=== PATIENT | female | born 1960 | race Caucasian/White ===

== ENCOUNTER 2022-12-02 05:57 | Observation (INO) ==
--- NOTE | 2022-11-09 09:04 | PAT Medication Instructions ---
Medication Instructions Date of Service November 09, 2022 Home Medications acetaminophen 325 mg tablet (Tylenol) 325 mg PO QID PRN Pain amlodipine 5 mg tablet 5 mg PO QAM famotidine 20 mg tablet 20 mg PO QAM gabapentin 300 mg tablet 300 mg PO TID multivitamin 1 tab PO QAM naproxen 250 mg tablet 250 mg PO BID PRN Pain tizanidine 4 mg tablet 4 mg PO BID PRN muscle spasms ASK your surgeon for instructions naproxen 250 mg tablet 250 mg PO BID PRN Pain DO NOT take the morning of surgery multivitamin 1 tab PO QAM tizanidine 4 mg tablet 4 mg PO BID PRN muscle spasms Take morning of surgery With a small sip of water, OTHERWISE NOTHING TO EAT OR DRINK AFTER MIDNIGHT: acetaminophen 325 mg tablet (Tylenol) 325 mg PO QID PRN Pain (if needed) amlodipine 5 mg tablet 5 mg PO QAM famotidine 20 mg tablet 20 mg PO QAM gabapentin 300 mg tablet 300 mg PO TID Take evening before surgery acetaminophen 325 mg tablet (Tylenol) 325 mg PO QID PRN Pain (if needed) gabapentin 300 mg tablet 300 mg PO TID tizanidine 4 mg tablet 4 mg PO BID PRN muscle spasms (if needed) Other Notes If you have any questions please call us at [phone] or [phone] or or [phone]
--- NOTE | 2022-11-14 11:56 | Anesthesiology Consultation ---
Date of Service November 14, 2022 Assessment & Plan (1) Encounter for pre-operative examination: COVID screening: Per assessment on 11/14: No known COVID-19 positive contacts or current COVID-19 related symptoms. Travel screen negative. At surgeon discretion if preop Covid testing being done. Chart Review Chart Review: Acceptable Risk for Surgery and Patient seen in Pre Admission Testing Teaching & Discussion Pre-Anesthesia Teaching/Discussion Notes: Instructed NPO after midnight before surgery,except medications with 15 cc of water. Medication instructions provided according to the PAT guidelines. History Surgery Operation Date: 11/28/22 12:55 Proposed Procedures p C4-C6 Anterior Cervical Discectomy and Fusion, Spinal Cord Monitoring - Lonnie Huynh DO Height/Weight Height: 5 ft 2 in Weight: 69.9 kg Allergies Allergy/AdvReac Type Severity Reaction Status Date / Time Penicillins Allergy Intermediate Hives Verified 11/08/22 11:40 Sulfa (Sulfonamide Allergy Intermediate Hives Verified 11/08/22 11:40 Antibiotics) Medications Home Medications Medication Instructions Recorded Confirmed Last Taken acetaminophen 325 mg tablet 325 mg PO QID PRN Pain 11/08/22 11/08/22 Unknown (Tylenol) amlodipine 5 mg tablet 5 mg PO QAM 11/08/22 11/08/22 Unknown famotidine 20 mg tablet 20 mg PO QAM 11/08/22 11/08/22 Unknown gabapentin 300 mg tablet 300 mg PO TID 11/08/22 11/08/22 Unknown multivitamin 1 tab PO QAM 11/08/22 11/08/22 Unknown naproxen 250 mg tablet 250 mg PO BID PRN Pain 11/08/22 11/08/22 Unknown tizanidine 4 mg tablet 4 mg PO BID PRN muscle spasms 11/08/22 11/08/22 Unknown Past Medical History Medical History Asthma As child, no recent issues History of anxiety Hypertension Exercise / Class Metabolic Activity II 4-5 Yardwork/Stairs/Walk up hill Past Family History Family History Other No family history of adverse response to anesthesia Past Surgical History Surgical History History of partial hysterectomy Hx of arthroscopy of shoulder left Hx of section x2 Hx of cholecystectomy Hx of colonoscopy Past Anesthesia History No Hx of Anesthesia Complications and No Family Hx of Anesthesia Complications History of PONV No Hx of PONV and No Hx of Motion Sickness Social History Smoking Status: Never smoker Do You Dip or Chew Tobacco: No Hx Alcohol Use: Yes alcohol intake frequency: a few times a week Hx Substance Use: Yes substance use type: marijuana (marijuana gummies as needed- advised) Last Used Substance Other:: 11/04/22 Review of Systems Patient denies chest pain, shortness of breath, dyspnea on exertion, fever, chills, cough, wheezing, palpitations. Physical Exam Vital Signs VITALS BP 149/76 P 63 TEMP 97.9 SP02 96%RA RESP 16 PHYSICAL Significantly decreased cervical extension range of motion. Full TMJ range of motion. TMD 3.5 finger breaths Mallampati Score 3 Dentition: upper partial Lungs: clear throughout to auscultation Cardiac: regular rate and rhythm, no murmurs noted Spine: normal Carotid arteries: negative bruit Extremities: no edema Lab Results Anesthesia Preop Results Results Anesthesia Widget: PT 10.8 Seconds (9.0-12.0) 11/14/22 PTT 26.2 Seconds (21.0-31.0) 11/14/22 INR 1.0 (0.9-1.1) 11/14/22 Urine Color Yellow 11/14/22 Urine Appearance Clear (Clear) 11/14/22 Urine pH 6.0 (4.5-7.5) 11/14/22 Urine Specific [place] 1.010 (1.000-1.030) 11/14/22 Urine Protein Negative (Negative) 11/14/22 Urine Glucose (UA) Negative (Negative) 11/14/22 Urine Ketones Negative (Negative) 11/14/22 Urine Blood Negative (Negative) 11/14/22 Urine Nitrite Negative (Negative) 11/14/22 Urine Bilirubin Negative (Negative) 11/14/22 Urine Urobilinogen Negative (Negative) 11/14/22 Urine Leukocyte Esterase Trace (Negative) H 11/14/22 Urine WBC (Auto) 1-5 /hpf (0-5) 11/14/22 Urine RBC (Auto) 0-4 /hpf (0-4) 11/14/22 Urine Hyaline Casts (Auto) 0 /lpf (0-5) 11/14/22 Urine Epithelial Cells (Auto) 5-10 /lpf (0-5) H 11/14/22 Urine Bacteria (Auto) Negative (Negative) 11/14/22 Blood Type AB Positive 11/14/22 Antibody Screen NEGATIVE 11/14/22 Testing Laboratory Results 10/13/22 WBC 6.6 H/H 13.5/42.2 PLATELETS 337 SODIUM 140 POTASSIUM 4.6 CHLORIDE 107 CO2 27 BUN 16 CREATININE 0.78 GLUCOSE 90 TSH 2.827 Electrocardiogram Date: 11/14/22 NSR with sinus arrhythmia at 63bpm. Chest X-Ray Date: 11/14/22 FINDINGS: Cardiomediastinal and hilar silhouettes are within normal limits. No pneumothorax, pleural effusion, airspace consolidation or overt pulmonary edema. Minimal linear scarring versus atelectasis of the lateral left lung base. Bones of the chest appear grossly intact. Cholecystectomy. IMPRESSION: No acute process. COVID-19 Risk Screen Screening Information COVID-19 Screen Date: 11/14/22 Exposure 21 Days Family/Household +COVID Last 21 Days: No Exposure 10 Days Any COVID Exposure Last 10 Days: No Symptoms Last 10 Days Experienced COVID Sx Last 10 Days: No + COVID 0-90 Days COVID + in Last 0-90 Days: No
[2022-12-02] MEDS ORDERED: GABAPENTIN 600 MG DOSE PO SCH (06:00)
[2022-12-02] MEDS ORDERED: ACETAMINOPHEN 500 MG TAB PO SCH (06:00)
[2022-12-02] MEDS ORDERED: LR 15ML/HR IV SCH (06:00)
[2022-12-02] MEDS ORDERED: CLINDAMYCIN/D5W 900 MG/50 ML BAG IV SCH (06:00)
[2022-12-02] MEDS ORDERED: ATROPINE SULFATE 0.1 MG/ML 10ML SYR IV PRN (06:59)
[2022-12-02] MEDS ORDERED: ONDANSETRON INJ 2 MG/ML 2 ML VIAL IV PRN ×2 (06:59→10:50)
[2022-12-02] MEDS ORDERED: ePHEDrine sulfate 50 MG/ML AMP IV PRN (06:59)
[2022-12-02] MEDS ORDERED: DEXAMETHASONE SOD INJ 4 MG/ML VIAL ONE (07:01)
[2022-12-02] MEDS ORDERED: MIDAZOLAM HCL 1 MG/ML 2ML VIAL ONE (07:01)
[2022-12-02] MEDS ORDERED: PROPOFOL IV EMULSION 10 MG/ML 100 ML VIAL IV ONE (07:01)
[2022-12-02] MEDS ORDERED: PROPOFOL IV EMULSION 10 MG/ML 20 ML VIAL IV ONE (07:01)
[2022-12-02] MEDS ORDERED: ONDANSETRON INJ 2 MG/ML 2 ML VIAL ONE (07:01)
[2022-12-02] MEDS ORDERED: ROCURONIUM BROMIDE 10 MG/ML 5 ML VIAL IV ONE (07:01)
[2022-12-02] MEDS ORDERED: LIDOCAINE 2% MPF LOCAL 5 ML VIAL INFIL ONE (07:01)
[2022-12-02] MEDS ORDERED: fentaNYL citrate PF 100 MCG/2 ML VIAL ONE ×2 (07:01→08:23)
[2022-12-02] MEDS ORDERED: SUCCINYLCHOLINE CHLORIDE 20 MG/ML 10 ML VIAL IV ONE (07:01)
[2022-12-02] MEDS ORDERED: ceFAZolin 330 MG/ML 1 GM VIAL ONE (07:21)
--- NOTE | 2022-12-02 07:37 | History & Physical Report ---
Date of Service December 02, 2022 Assessment & Plan (1) Cervical stenosis of spinal canal: Plan: C4-C6 anterior cervical discectomy and fusion History of Present Illness Chief Complaint: Neck and arm pain Primary Care Provider: Eileen Escudero DO This is a 62-year-old female who presents with chronic persistent neck and arm pain after failing course of nonoperative care she is here for surgical intervention. Allergies Allergy/AdvReac Type Severity Reaction Status Date / Time Penicillins Allergy Intermediate Hives Verified 12/02/22 06:16 Sulfa (Sulfonamide Allergy Intermediate Hives Verified 12/02/22 06:16 Antibiotics) shellfish derived Allergy Unknown Verified 12/02/22 06:40 Home Medications Medication Instructions Recorded Confirmed Type acetaminophen 325 mg tablet 325 mg PO QID PRN Pain 11/08/22 12/02/22 History (Tylenol) amlodipine 5 mg tablet 5 mg PO QAM 11/08/22 12/02/22 History famotidine 20 mg tablet 20 mg PO QAM 11/08/22 12/02/22 History gabapentin 300 mg tablet 300 mg PO TID 11/08/22 12/02/22 History multivitamin 1 tab PO QAM 11/08/22 12/02/22 History naproxen 250 mg tablet 250 mg PO BID PRN Pain 11/08/22 12/02/22 History tizanidine 4 mg tablet 4 mg PO BID PRN muscle spasms 11/08/22 12/02/22 History Past Med/Surg History Medical History Asthma As child, no recent issues History of anxiety Hypertension Surgical History History of partial hysterectomy Hx of arthroscopy of shoulder left Hx of section x2 Hx of cholecystectomy Hx of colonoscopy Family History Other No family history of adverse response to anesthesia Social History Smoking Status: Never smoker Second Hand Exposure: No; Do You Dip or Chew Tobacco: No; Tobacco Cessation Education Requested by Patient: No Hx Alcohol Use: Yes Hx Substance Use: Yes Last Used Substance Other:: 11/04/22 Preferred Language: Swedish Communication Ability: Effective Lens Polisher Required: No Beliefs That Will Affect Care: None Current Living Situation: Spouse Other Information That Helps Us Care for You: No Feels Safe at Home: Yes Safety Concerns: Feels Safe At This Time Assistive Devices: Glasses Assistive Devices Comment: upper partial Physical Exam Physical Exam: Patient is alert and oriented Heart regular rhythm Lungs clear Results & Data Results & Data ([facility]) Vital Signs (Past 12 Hours) Vital Signs Temp Pulse Resp BP Pulse Ox O2 Del Method 12/02/22 06:25 36.5 C 73 22 167/90 H 95 Room Air
--- NOTE | 2022-12-02 07:37 | History & Physical Bridge Note ---
Date of Service December 02, 2022 History & Physical Bridge Note I have examined the patient, reviewed the History & Physical and in the interval since the performance of the History & Physical I have noted the following changes of clinical significance: no changes noted
[2022-12-02] MEDS ORDERED: KETAMINE 50 MG/5 ML SYRINGE ONE (08:29)
[2022-12-02] MEDS ORDERED: FLOSEAL HEMOSTATIC MATRIX 10ML TOP ONE (08:45)
--- NOTE | 2022-12-02 09:12 | Operative Report ---
Post Operative Report Pre & Post Diagnosis Operation Date: 12/02/22 07:45 Pre-Op Diagnosis: Cervical spinal stenosis with radiculopathy Post-Op Diagnosis: Same I identified the patient and participated in the time-out.: Yes Procedure Operation Date: 12/02/22 07:45 Actual Procedures #1 anterior cervical discectomy with bilateral foraminotomies C4-C5 and C5-C6. #2 anterior cervical arthrodesis C4-C5 and C5-C6. #3 placement of Spira 7 mm cage filled with I factor at C4-C5 C5-C6. #4 application of K2 M plate and screws from C4-C6. Surgeon Lonnie Huynh, DO Product Support Sales Representative Fabian Florez Estimated Blood Loss 10 Findings Consistent with Post-Op Diagnosis Specimens None Indications This is a 8-year-old female who presents above-mentioned diagnosis after failing extensive course of nonoperative care is here for surgical intervention. Description of Procedure Patient was met with identified informed consent obtained. Patient then taken to the operative suite underwent ablation placed in a supine position on the Carlos table with head Whiting head golf professional. All bony prominences well-padded eyes inspected to ensure no external pressure placed upon the. This point the anterior cervical spine was prepped and draped in normal sterile fashion. The assistance of fluoroscopy identified the C5 vertebral body. A transverse incision was placed along the right anterior aspect of the cervical spine overlying this region. Blunt dissection with the assistance of bipolar e lectrocautery was performed down to expose the anterior cervical spine from C4- C6. Self-retaining tractors placed. Then performed complete discectomy of C4- C5 out to the uncovertebral joints bilaterally. Powell distracting pins were utilized to assist in visualization. Removed all posterior annular fibers longitudinal ligament bilateral foraminotomies performed. Endplates burred to subcortical bleeding bone and a 7 mm Spira cage with I factor tapped in position. Then proceeded to see 5 C6. Again complete discectomy performed out to the uncovertebral's bilaterally. Powell distracting pins again utilized. Removed all posterior and the fibers longitudinal ligament bilateral foraminotomies performed. Endplates burred to subcortical bleeding bone and a 7 mm spiral cage with I factor tapped in position. Distracting apparatus was removed all anterior osteophytes burred to a smooth cortical surface and a K2 M plate and screws applied with the assistance of fluoroscopy. The incision was then copiously irrigated explored to ensure no damage to surrounding structures remaining bleeding. 10 round JOSE drain inserted. The incision was then closed with 2 Vicryl in a fashion of 4 Monocryl for final skin closure. Steri-Strips sterile dressings placed. Patient waken taken to PACU in stable condition. Please note spinal cord monitoring was utilized at the procedure no changes note d. Lastly Fabian Florez was present at the entire surgeon while the patient positioning complex portions of the surgery and final skin closure. I attest to the content of the Intraoperative Record and any orders documented therein. Any exceptions are noted below.
--- NOTE | 2022-12-02 09:32 | Fluoroscopy Report ---
FL cervical 2-3V CLINICAL HISTORY: ACDF C4-6 COMPARISON STUDY: None. FLUOROSCOPY TIME: 7 seconds. EXPOSURE DOSE: 0.63 mGy FLUOROSCOPIC IMAGES: 2 FINDINGS: Fluoroscopy was provided during C4-C6 anterior discectomy and fusion. Hardware is intact. S urgical drain is in place. Endotracheal tube is partially imaged. Operative bed linear radiodensities on the initial image are not present on the second image. IMPRESSION: Fluoroscopy provided during C4-C6 anterior discectomy and fusion. ACT 112: Negative or not required by law. Electronically signed by: Josh Casarez M.D. 12/02/2022 9:31 AM
[2022-12-02] MEDS: fentaNYL citrate PF 100 MCG/2 ML VIAL IV PRN ×4 (09:44→10:05)
[2022-12-02] MEDS: HYDROmorphone INJ 2 MG/ML SYR/VIAL IV PRN ×2 (10:10→10:18)
[2022-12-02] MEDS ORDERED: LORazepam 0.5 MG TAB PO PRN (10:50)
[2022-12-02] MEDS ORDERED: LORazepam 2 MG/1 ML VIAL IV PRN (10:50)
[2022-12-02] MEDS ORDERED: RACEPINEPHRINE 2.25% NEBU SOLN 0.5 ML VIAL INH PRN (10:50)
[2022-12-02] MEDS ORDERED: MAGNESIUM HYDROXIDE SUSP 30 ML UDC PO PRN (10:50)
[2022-12-02] MEDS ORDERED: dexAMETHasone 8 MG in SYRINGE 0 ML IV PRN (10:50)
[2022-12-02] MEDS ORDERED: FAMOTIDINE 20 MG TAB PO PRN (10:50)
[2022-12-02] MEDS ORDERED: diphenhydrAMINE Capsule 25 MG CAP PO PRN (10:50)
[2022-12-02] MEDS ORDERED: traMADol HCL 50 MG TABLET PO PRN (10:50)
[2022-12-02] MEDS ORDERED: ONDANSETRON 4 MG OD TAB PO PRN (10:50)
[2022-12-02] MEDS ORDERED: METOCLOPRAMIDE HCL INJ 5 MG/ML 2 ML VIAL IV PRN (10:50)
[2022-12-02] MEDS ORDERED: ACETAMINOPHEN 500 MG TAB PO PRN (10:50)
[2022-12-02] MEDS ORDERED: ALUMINUM/MAGNESIUM SUSP 30 ML UDC PO PRN (10:50)
[2022-12-02] MEDS ORDERED: hydrOXYzine HCl 25 MG TAB PO PRN (10:50)
[2022-12-02] MEDS ORDERED: DO NOT ADMINISTER FLU VACCINE PRN (10:50)
[2022-12-02] MEDS ORDERED: SOD PHOSPHATE/SOD BIPHOSPHATE ENEMA 132 ML BTL PR PRN (10:50)
[2022-12-02] MEDS ORDERED: DO NOT ADMINISTER PNEUMOCOCCAL VACCINE PRN (10:50)
[2022-12-02] MEDS ORDERED: PROMETHAZINE HCL 12.5 MG in SODIUM CHLORIDE 0.9% 50 ML IV PRN (10:50)
[2022-12-02] MEDS ORDERED: ACETAMINOPHEN 1,000 MG/100 ML VIAL IV PRN (10:50)
[2022-12-02] MEDS ORDERED: oxyCODONE HCL IR 5 MG TAB (IMMEDIATE RELEASE) PO PRN (10:50)
[2022-12-02] MEDS ORDERED: bisacodyL 10 MG SUPP PR PRN (10:50)
[2022-12-02] MEDS ORDERED: NALOXONE HCL 0.4 MG/1 ML VIAL/CARP IV PRN (10:50)
[2022-12-02] MEDS: LACTATED RINGER'S 1,000 ML IV SCH ×2 (12:00→21:57)
--- NOTE | 2022-12-02 13:33 | Anesthesiology Progress Note ---
Date of Service December 02, 2022 Anesthesia Post Procedure Vital Signs Vital Signs: Temp Pulse Pulse Resp BP Pulse Ox Pulse Ox 12/02/22 12:51 36.4 C L 88 18 126/76 95 12/02/22 11:56 36.4 C L 92 H 18 128/74 95 12/02/22 11:19 36.4 C L 102 H 18 134/76 94 12/02/22 11:19 113 H 16 94 12/02/22 11:12 12/02/22 10:50 94 12/02/22 10:50 36.5 C 98 H 12 135/78 94 12/02/22 10:40 100 H 18 138/75 95 12/02/22 10:30 36.2 C L 86 16 133/68 95 12/02/22 10:20 98 H 22 143/78 H 95 12/02/22 10:10 88 12 165/86 H 95 12/02/22 10:00 105 H 24 157/95 H 94 12/02/22 09:50 105 H 20 148/83 H 94 12/02/22 09:40 121 H 22 157/92 H 93 12/02/22 09:30 36.2 C L 117 H 20 167/90 H 92 12/02/22 06:25 36.5 C 73 22 167/90 H 95 O2 Del Method O2 Del Method O2 Flow Rate O2 Flow Rate 12/02/22 12:51 Room Air 12/02/22 11:56 Nasal Cannula 2 12/02/22 11:19 Nasal Cannula 2 12/02/22 11:19 Nasal Cannula 2 12/02/22 11:12 Nasal Cannula 2 12/02/22 10:50 Nasal Cannula 2 12/02/22 10:50 Room Air 2 12/02/22 10:40 Nasal Cannula 3 12/02/22 10:30 Nasal Cannula 3 12/02/22 10:20 Nasal Cannula 3 12/02/22 10:10 Nasal Cannula 3 12/02/22 10:00 Nasal Cannula 2 12/02/22 09:50 Nasal Cannula 2 12/02/22 09:40 Nasal Cannula 2 12/02/22 09:30 Nasal Cannula 2 12/02/22 06:25 Room Air Pain Intensity Left Arm: Pain Intensity: 8 Neck: Pain Intensity: 4 Transfer of Care Handoff Completed per policy Notes Mental Status: alert / awake / arousable and participated in evaluation Patient Amnestic to Procedure: Yes Nausea / Vomiting: adequately controlled Pain: adequately controlled Airway Patency, RR, SpO2: stable & adequate BP & HR: stable & adequate Hydration State: stable & adequate Anesthetic Complications: no major complications apparent and Pt Satisfied with anesthetic care
[2022-12-02] MEDS: HYDROmorphone INJ 0.5 MG/0.5 ML SYR IV PRN ×3 (13:55→23:18)
[2022-12-02] MEDS ORDERED: GABAPENTIN 300 MG CAP PO SCH (14:00)
--- NOTE | 2022-12-02 14:46 | Hospitalist Consultation ---
Date of Consultation December 02, 2022 Assessment & Plan (1) Cervical stenosis of spinal canal: s/p discectomy and fusion - Pain control, PT/OT, DVT ppx, JOSE drain management, etc. per primary service - Now that she is post op, would start weaning Gabapentin, will reduce to 300mg BID (previously on TID) - Recommend use of incentive spirometer q1h wa for atelectasis/pna prevention (2) Anxiety: - Is on no specific medications for this - Supportive care (3) Essential hypertension: - Resume Amlodipine - BP well controlled at present (4) GERD (gastroesophageal reflux disease): - Continue Pepcid Plan Patient is doing well post operatively. Recommendations are as outlined above. Thank you for allowing us to participate in the care of your patient. Will sign off as she is medically stable, but please feel free to reconsult if any acute needs should arise while she remains in house. Above plan of care has been d/w Dr. Peter who has will also see and evaluate this patient and agrees with aforementioned. Further orders will be implemented as warranted. Supervising Physician Co-Signing Physician Notes Patient seen and examined, chart reviewed, case discussed with Malu Kesselr PA-C and I agree with the assessment and plan as above except as otherwise noted Labs and images reviewed History of anxiety, asthma, hypertension and cervical stenosis w/ radiculopathy s/p decompression and hardware placement c4-c6. We are consulted for postoperative management. Surgery was uncomplicated with minimal blood loss of 10 cc by report. Patient is doing well postoperatively, is medically stable, and with improvement in symptoms. No pain at assessment. Rate is regular, BP is normal, lungs are clear. JOSE drain serosanguineous material. DVT prophylaxis, pain control, activity per primary team. BP adequately controlled, continue amlodipine. Continue GERD prophylaxis with Pepcid. While on DVT p rophylaxis would increase to PPI either daily or twice daily for duration of prophylaxis. Otherwise agree with recommendations above History of Present Illness Reason for Consultation: Medical management Requesting Physician: Dr. Huynh Attending Physician: Lonnie Huynh, DO History of Present Illness Renetta Richard is a 62 yo WF with a pmhx of anxiety, asthma, and htn who was admitted to Dr. Huynh's service for elective surgical C4-C6 anterior cervical discectomy and fusion due to chronic persistent neck and arm pain after failing course of nonoperative care. She was taken to the OR today, received general anesthesia. She tolerated the procedure well and had no immediate complications. She is currently resting in bed, has no complaints other than feeling drowsy. She notes her pain is adequately controlled. Denies chest pain or dyspnea. She has voided since surgery. Hospitalists have been consulted for routine post op medical management. Allergies Allergy/AdvReac Type Severity Reaction Status Date / Time Penicillins Allergy Intermediate Hives Verified 12/02/22 06:16 Sulfa (Sulfonamide Allergy Intermediate Hives Verified 12/02/22 06:16 Antibiotics) shellfish derived Allergy Unknown Verified 12/02/22 06:40 Home Medications Medication Instructions Recorded Confirmed Type acetaminophen 325 mg tablet 325 mg PO QID PRN Pain 11/08/22 12/02/22 History (Tylenol) amlodipine 5 mg tablet 5 mg PO QAM 11/08/22 12/02/22 History famotidine 20 mg tablet 20 mg PO QAM 11/08/22 12/02/22 History gabapentin 300 mg tablet 300 mg PO TID 11/08/22 12/02/22 History multivitamin 1 tab PO QAM 11/08/22 12/02/22 History naproxen 250 mg tablet 250 mg PO BID PRN Pain 11/08/22 12/02/22 History tizanidine 4 mg tablet 4 mg PO BID PRN muscle spasms 11/08/22 12/02/22 History oxycodone 5 mg tablet 5 mg PO Q6H PRN pain, severe #30 12/02/22 Rx tabs tramadol 50 mg tablet 50 mg PO Q6H PRN pain, moderate 12/02/22 Rx #30 tabs Patient History Medical History Asthma As child, no recent issues History of anxiety Hypertension Surgical History History of partial hysterectomy Hx of arthroscopy of shoulder left Hx of section x2 Hx of cholecystectomy Hx of colonoscopy Family History Other No family history of adverse response to anesthesia Social History Smoking Status: Never smoker Second Hand Exposure: No; Do You Dip or Chew Tobacco: No; Tobacco Cessation Education Requested by Patient: No Hx Alcohol Use: Yes Hx Substance Use: Yes Last Used Substance Other:: 11/04/22 Preferred Language: Belarusian Communication Ability: Effective Classroom Monitor Required: No Beliefs That Will Affect Care: None Current Living Situation: Spouse Other Information That Helps Us Care for You: No Feels Safe at Home: Yes Safety Concerns: Feels Safe At This Time Assistive Devices: None Assistive Devices Comment: upper partial Physical Exam Physical Exam: GENERAL: 62 yo Well-developed, well-nourished WF. NAD. NECK: C-collar in place, incision site anteriorly covered, no shadowing. JOSE drain visualized with scant output. LUNGS: Clear to auscultation bilaterally. CARDIOVASCULAR: Regular rate and rhythm. EXTREMITIES: No edema. Non-tender. Peripheral pulses +2/4. NEUROLOGIC: A&O x3. No focal neurological deficits. CN II-XII grossly intact. Results & Data Results & Data ([facility]) Vital Signs (Past 12 Hours) Vital Signs Temp Pulse Pulse Resp BP Pulse Ox Pulse Ox 12/02/22 13:52 36.4 C L 84 16 126/75 95 12/02/22 12:51 36.4 C L 88 18 126/76 95 12/02/22 11:56 36.4 C L 92 H 18 128/74 95 12/02/22 11:19 36.4 C L 102 H 18 134/76 94 12/02/22 11:19 113 H 16 94 12/02/22 11:12 12/02/22 10:50 94 12/02/22 10:50 36.5 C 98 H 12 135/78 94 12/02/22 10:40 100 H 18 138/75 95 12/02/22 10:30 36.2 C L 86 16 133/68 95 12/02/22 10:20 98 H 22 143/78 H 95 12/02/22 10:10 88 12 165/86 H 95 12/02/22 10:00 105 H 24 157/95 H 94 12/02/22 09:50 105 H 20 148/83 H 94 12/02/22 09:40 121 H 22 157/92 H 93 12/02/22 09:30 36.2 C L 117 H 20 167/90 H 92 12/02/22 06:25 36.5 C 73 22 167/90 H 95 O2 Del Method O2 Del Method O2 Flow Rate O2 Flow Rate 12/02/22 13:52 Nasal Cannula 2 12/02/22 12:51 Nasal Cannula 2 12/02/22 11:56 Nasal Cannula 2 12/02/22 11:19 Nasal Cannula 2 12/02/22 11:19 Nasal Cannula 2 12/02/22 11:12 Nasal Cannula 2 12/02/22 10:50 Nasal Cannula 2 12/02/22 10:50 Room Air 2 12/02/22 10:40 Nasal Cannula 3 12/02/22 10:30 Nasal Cannula 3 12/02/22 10:20 Nasal Cannula 3 12/02/22 10:10 Nasal Cannula 3 12/02/22 10:00 Nasal Cannula 2 12/02/22 09:50 Nasal Cannula 2 12/02/22 09:40 Nasal Cannula 2 12/02/22 09:30 Nasal Cannula 2 12/02/22 06:25 Room Air Laboratory Results Preop labs reviewed Nov 2022 - UA neg, coags WNL, COVID neg, EKG SR with sinus arrhythmia PG Care Time/CCT Total # of Minutes Spent Total Time Spent with Patient: Total time spent is greater than 50% in coordination of care (as documented) at patient's floor/unit and/or counseling patient: Coding Level of Care Code 82257 IN/OBS CONSULT LVL 4,60M Diagnoses Cervical stenosis of spinal canal M48.02 Anxiety F41.9 Essential hypertension I10 GERD (gastroesophageal reflux disease) K21.9
[2022-12-02] MEDS: CLINDAMYCIN/D5W 600 MG/50 ML BAG IV SCH ×2 (16:01→23:14)
[2022-12-02] MEDS ORDERED: DOCUSATE SODIUM/SENNA 50/8.6MG TAB PO SCH (21:00)
[2022-12-02] MEDS: GABAPENTIN 300 MG CAP PO SCH (21:57)
[2022-12-03] MEDS ORDERED: POLYETHYLENE (MIRALAX) 17 GM PACK PO SCH (06:00)
[2022-12-03] MEDS: HYDROmorphone INJ 0.5 MG/0.5 ML SYR IV PRN (06:04)
--- NOTE | 2022-12-03 08:09 | Discharge Summary ---
Date of Service December 03, 2022 Admission HPI Per Admitting Provider This is a 62-year-old female who presents with chronic persistent neck and arm pain after failing course of nonoperative care she is here for surgical intervention. Principal Diagnosis Cervical radiculopathy Discharge Data Allergies Allergy/AdvReac Type Severity Reaction Status Date / Time Penicillins Allergy Intermediate Hives Verified 12/02/22 06:16 Sulfa (Sulfonamide Allergy Intermediate Hives Verified 12/02/22 06:16 Antibiotics) shellfish derived Allergy Unknown Verified 12/02/22 06:40 Consultations 12/02/22 10:50 Consult Hospitalist Routine Procedures Performed Operation Date: 12/02/22 07:45 Actual Procedures p C4-C6 Anterior Cervical Discectomy and Fusion, Spinal Cord Monitoring(Not Applicable) - Lonnie Huynh DO Ordered Studies 12/02/22 07:45 FL cervical 2-3V Routine Hospital Course (1) Cervical stenosis of spinal canal: Patient underwent anterior cervical discectomy fusion tolerated this well was taken to orthopedic for postoperative pain postop day 1 she Alexis Maher left arm pain. Swallowing well. No hoarseness. Pain well controlled. Excellent strength testing. Safely discharged home. Discharge orders and instructions found in the chart for further review. Total Time Total Time Spent Total Time Spent (In Minutes): 20 minutes Discharge Plan Discharge Items Patient Disposition: Home - Self-Care Reason For Visit: Spinal Stenosis, Cervical Region Discharge Diagnosis: Cervical spinal stenosis with radiculopathy Activity: As commented below Non-emergency contact: Primary Care Provider Call non-emergency contact if: you have any medication questions Follow-up/Referrals: Eileen Escudero DO [Primary Care Provider] - Diet: Regular Addtl Attending Provider Instructions: ACTIVITY RECOMMENDATIONS: SELF CARE INSTRUCTIONS AFTER CERVICAL FUSIONS 1. No smoking. Smoking drastically decreases the chance of a solid fusion. 2. No bending, lifting more than 5 pounds, or twisting (roll like a log when turning in bed). 3. You may shower 3 days after surgery. Thoroughly dry wound. Do not soak in the tub. 4. Cervical collar: Must be worn at all times including sleeping. You may remove the brace only to bath, eat and if you are sitting in a recliner. 5. Please walk as much as you can for exercise. Gradually increase the distance that you walk as your endurance increases. SPECIAL CARE INSTRUCTIONS: VERY IMPORTANT TO READ AND REVIEW A. Do not take any anti-inflammatory medications (i.e. Indocin, Advil, Aspirin, Naprosyn, Aleve, Motrin, etc.) as these may inhibit the chance of a solid fusion. Tylenol is okay to take. B. Your surgical incision has been closed with a cosmetic suture under the skin that will dissolve in about 6 weeks. In 14 days, you can use a pair of nehal an scissors and cut the suture that is left outside of the skin at the ends of your incision. C. Complications are uncommon, but please contact us if you have any signs or symptoms of: 1. wound infection (fever higher than 102.5 degrees F, redness, separation of wound, drainage, or increasing pain from the incision) 2. blood clots in legs (pain, swelling, redness and warmth in legs) 3. urinary tract infection (fever higher than 102.5 degrees, burning upon urination or increased frequency of urination) 4. nerve problems (inability to walk on your toes or heels, numbness, loss of bowel or bladder control) 5. any other symptoms that concern you. D. Please call the office at if you have any concerns or questions about your operation or recovery. MANAGING PAIN AFTER SPINAL SURGERY 1. Narcotic medication is intended for short-term use and will be provided for surgical pain. Surgical pain usually lasts for a period of 4-6 weeks. Narcotic medication includes Percocet, Vicodin, Darvocet, Tylenol #3 or Lortab. 2. Longer-term pain is more appropriately treated with non-narcotic medication such as Tylenol ES. 3. Muscle spasm is not appropriately treated with narcotics. Muscle relaxers such as Soma, Flexeril or Skelaxin can be used along with Tylenol ES. 4. Remember that we all live with some "aches and pains". This is not unusual or uncommon after an injury or as we get older. 5. We will provide appropriate medication within the normal guidelines of their prescribed use. We will also be very cautious and aware of potential abuse and extended duration of patients' medication needs. 6. Please allow 2-3 days to process refills. Prescriptions will not be mailed but must be picked up at the office. FOLLOW UP VISIT: Keep your scheduled follow-up appointment. Any questions, please call the office at . Pending Studies at Discharge: No Stand-Alone Forms: My [facility], Smoking Cessation Medications and DC Order Prescriptions: New tramadol 50 mg tablet 50 mg PO Q6H PRN (Reason: pain, moderate) Qty: 30 0RF oxycodone 5 mg tablet 5 mg PO Q6H PRN (Reason: pain, severe) Qty: 30 0RF Continued multivitamin Tablet 1 tab PO QAM acetaminophen [Tylenol] 325 mg Tablet 325 mg PO QID PRN (Reason: Pain) tizanidine 4 mg Tablet 4 mg PO BID PRN (Reason: muscle spasms) naproxen 250 mg Tablet 250 mg PO BID PRN (Reason: Pain) amlodipine 5 mg Tablet 5 mg PO QAM famotidine 20 mg Tablet 20 mg PO QAM gabapentin 300 mg Tablet 300 mg PO TID Discharge Orders: Discharge Order (Routine); Ordered 12/03/22 Ordered By: Lonnie Huynh Admission Data Admit Date/Time: 12/02/22 09:15 Attending Provider: Lonnie Huynh Admit Provider: Lonnie Huynh Primary Care Provider: Eileen Escudero. Other Providers: Marcial Peter
[2022-12-03] MEDS: GABAPENTIN 300 MG CAP PO SCH (08:11)
[2022-12-03] MEDS ORDERED: FAMOTIDINE 20 MG TAB PO SCH (09:00)
[2022-12-03] MEDS ORDERED: amLODIPine BESYLATE 5 MG TAB PO SCH (09:00)
[2022-12-03] MEDS ORDERED: dexAMETHasone 8 MG in SYRINGE 0 ML IV SCH (09:00)
== END 2022-12-03 11:33 | disposition home or self-care (01) | DRG 473 ==
LOC: ASU 05:57 → 3E 09:15 → INTOOBSV 09:15
DX: M48.02 Spinal stenosis, cervical region; Z88.2 Allergy status to sulfonamides; F41.9 Anxiety disorder, unspecified; Z88.5 Allergy status to narcotic agent; I10 Essential (primary) hypertension; Z88.0 Allergy status to penicillin; Z91.013 Allergy to seafood; M54.12 Radiculopathy, cervical region; K21.9 Gastro-esophageal reflux disease without esophagitis